=== PATIENT | male | born 1990 | race Caucasian/White ===

== ENCOUNTER 2019-08-18 13:56 | Inpatient (IN) | payer OTHER ==
[~2019-08-18] VITALS: Ht 180.3 cm; Wt 122.5 kg
[~2019-08-18 13:56] MED LIST: KEFLEX500 MG PO; NOHOMEMEDICATIONS
[2019-08-18 13:58] VITALS: BP 137/89
[2019-08-18] MEDS ORDERED: METFORMIN HCL500 M3 PO (14:08)
[2019-08-18] MEDS ORDERED: ZOCOR 10 MG TAB10 M1 PO (14:09)
[2019-08-18] MEDS ORDERED: LISINOPRIL2.5 MG PO (14:09)
[2019-08-18] MEDS ORDERED: VITAMIN D2400 UNIT PO (14:10)
[2019-08-18] MEDS ORDERED: VENLAFAXINE HC150 MG PO (14:11)
[2019-08-18 14:41] LABS: ABSOLUTE LYMPHOCYTES 0.7 thou/uL (0.8-5.3); ABSOLUTE MONOCYTES 0.2 thou/uL (0.0-1.2); BASOPHILS 0.3 %; HEMATOCRIT 37.2 % (42.0-52.0); LYMPHOCYTES 18.5 %; MCH 28.2 pg (26.0-34.0); MCV 80.6 fL (80.0-100.0); MONOCYTES 5.8 %; MPV 7.8 fl. (7.2-11.1); NUCLEATED RBCS 0 /100WBC; PLATELET COUNT* 166 thou/uL (150-400); POLYS 75.4 %; RBC 4.61 mil/uL (4.50-6.00); RDW-CV 14.7 % (10.5-14.5)
[2019-08-18 14:52] LABS: CALCIUM 8.3 mg/dL (8.5-10.1); CREATININE 0.9 mg/dL (0.6-1.3)
[2019-08-18 14:54] LABS: INFLUENZA A ANTIGEN Negative (Negative); INFLUENZA B ANTIGEN Negative (Negative)
[2019-08-18 14:56] LABS: ALBUMIN 3.6 g/dL (3.4-5.0); TOTAL BILIRUBIN 0.6 mg/dL (<0.1-1.0); TOTAL PROTEIN 7.9 g/dL (6.4-8.2)
[2019-08-18 16:40] VITALS: BP 112/69
[2019-08-18 17:00] VITALS: BP 136/84
[2019-08-18 20:20] VITALS: BP 108/71
[2019-08-19] VITALS (7 sets, daily range): BP systolic 118–145; BP diastolic 56–97
[2019-08-19 05:14] LABS: HEMATOCRIT 35.1 % (42.0-52.0); MCH 27.8 pg (26.0-34.0); MCHC 34.2 g/dL (28.0-37.0); MCV 81.3 fL (80.0-100.0); MPV 7.4 fl. (7.2-11.1); RBC 4.31 mil/uL (4.50-6.00); RDW-CV 14.5 % (10.5-14.5); WBC 4.4 thou/uL (4.0-11.0)
[2019-08-19 05:33] LABS: CALCIUM 8.3 mg/dL (8.5-10.1); CREATININE 0.8 mg/dL (0.6-1.3); TOTAL BILIRUBIN 0.5 mg/dL (<0.1-1.0); TOTAL PROTEIN 6.9 g/dL (6.4-8.2)
--- NOTE | 2019-08-19 05:39 | NUR ---
PT A&O X 4. FEVER ALL NIGHT. TYLENOL GIVEN. O2 SAT 92-94% ON 2L. MEDS GIVEN ORDERED. IVF INFUSING. NO C/O PAIN OR N/V. WILL CONTINUE TO MONITOR.
--- NOTE | 2019-08-19 14:15 | NUR ---
CM SPOKE TO THE PT TO DISCUSS HIS HOME SITUATION, DISCHARGE PLANNING, AND TO DISCUSS THE ROLE OF CM. PT INDEPENDENT, ACTIVE, AND WORKED PRIOR TO ADMISSION. PT DOES NOT USE ANY DME. PT INFORMS THAT HE WORKS FOR A [employer]Y AND DOES NOT HAVE INSURANCE. PT HAS LIMITED RESOURCES AND MAY HAVE D/C BARRIERS IF ANY DME OR MEDICATIONS ARE NEEDED. CM WILL REMAIN AVAILABLE TO ASSIST AND FOLLOW FOR D/C PLANNING NEEDS.
[2019-08-20] VITALS: BP 140/95
[2019-08-20 02:07] LABS: GLYCOHEMOGLOBIN (HGB A1C) 9.9 % (4.8-5.6)
[2019-08-20 03:23] LABS: BE -3.7 mmol/L (-2 to +3); PCO2 41.2 mmHg (35.0-45.0); pH 7.341 (7.340-7.450)
[2019-08-20 03:27] LABS: PO2 43.2 mmHg (75.0-100.0)
[2019-08-20 04:00] VITALS: BP 133/89
[2019-08-20 04:10] LABS: ALBUMIN 3.1 g/dL (3.4-5.0); CALCIUM 8.6 mg/dL (8.5-10.1); CREATININE 0.8 mg/dL (0.6-1.3); MAGNESIUM 1.9 mg/dL (1.8-2.4); POTASSIUM 3.7 mmol/L (3.5-5.1); TOTAL BILIRUBIN 0.5 mg/dL (<0.1-1.0); TOTAL PROTEIN 7.3 g/dL (6.4-8.2)
[2019-08-20 04:10] LABS: BE -1.9 mmol/L (-2 to +3); PO2 68.5 mmHg (75.0-100.0); pH 7.371 (7.340-7.450)
[2019-08-20 04:22] LABS: HEMATOCRIT 36.4 % (42.0-52.0); HEMOGLOBIN 12.4 gm/dL (14.0-18.0); MCH 27.7 pg (26.0-34.0); MCV 81.7 fL (80.0-100.0); MPV 7.6 fl. (7.2-11.1); RBC 4.46 mil/uL (4.50-6.00); RDW-CV 14.8 % (10.5-14.5); WBC 6.4 thou/uL (4.0-11.0)
--- NOTE | 2019-08-20 04:52 | NUR ---
PATIENT HAS SLEPT OFF AND ON DURING THE NIGHT. VSS ON 5L 02 VIA NASAL CANNULA. PATIENT WAS FEBRILE EARLIER IN THE NIGHT. TEMP NOW 36.7. PATIENT TACHYPNEIC. NOTIFIED AND NEW ORDERS GIVEN. NEW IV INSERTED IN RIGHT AC-SL. PATIENT INSTRUCTED TO USE CALL LIGHT WHEN NEEDING ASSISTANCE. HOURLY ROUNDS MADE. WILL CONTINUE WITH PLAN OF CARE AND NURSING TO MONITOR.
[2019-08-20 07:40] VITALS: BP 152/89
[2019-08-20 12:00] VITALS: BP 149/86
[2019-08-20 16:00] VITALS: BP 135/99
--- NOTE | 2019-08-20 17:07 | NUR ---
ASSUMED CARE OF PATIENT AT APPROX 0730. ALERT AND ORIENTED X4. ASSESSMENT COMPLETED AND CHARTED. 02 AT 90% ON 6 LITERS NC, RT PLACED PATIENT ON HI NILSON AT 30 LITERS; PATIENT VITALS STABLE. SINUS TACH TRACED ON THE MONITOR. PATIENT GIVEN AN IS AND INSTRUCTED ON USING IT WITH A GOAL OF 2500, PROGRESSING WELL TODAY. PATIENT UP AD NICOL. CALL LIGHT WITHIN REACH. HOURLY ROUNDS COMPLETED. WILL CONTINUE WITH PLAN OF CARE.
[2019-08-20 20:00] VITALS: BP 144/92
[2019-08-21 05:36] LABS: ABSOLUTE LYMPHOCYTES 0.8 thou/uL (0.8-5.3); ABSOLUTE MONOCYTES 0.4 thou/uL (0.0-1.2); ABSOLUTE NEUTROPHILS 3.6 thou/uL (1.6-8.1); BASOPHILS 0.3 %; EOSINOPHILS 0.1 %; HEMATOCRIT 34.9 % (42.0-52.0); HEMOGLOBIN 12.1 gm/dL (14.0-18.0); LYMPHOCYTES 17.1 %; MCH 27.9 pg (26.0-34.0); MCHC 34.8 g/dL (28.0-37.0); MCV 80.3 fL (80.0-100.0); MONOCYTES 8.2 %; MPV 7.7 fl. (7.2-11.1); NUCLEATED RBCS 0 /100WBC; PLATELET COUNT* 238 thou/uL (150-400); POLYS 74.3 %; RBC 4.34 mil/uL (4.50-6.00); RDW-CV 14.4 % (10.5-14.5); WBC 4.9 thou/uL (4.0-11.0)
--- NOTE | 2019-08-21 05:52 | NUR ---
PT A&O, ON HIGH FLOW O2. TYLENOL GIVEN FOR LOW GRADE TEMP AND HEADACHE. HR TACHY. MEDS GIVEN ORDERED. MONITOR IN PLACE. WILL CONTINUE TO MONITOR.
[2019-08-21 05:57] LABS: ALBUMIN 2.9 g/dL (3.4-5.0); CALCIUM 8.5 mg/dL (8.5-10.1); CREATININE 0.7 mg/dL (0.6-1.3); POTASSIUM 3.5 mmol/L (3.5-5.1); TOTAL BILIRUBIN 0.5 mg/dL (<0.1-1.0); TOTAL PROTEIN 7.3 g/dL (6.4-8.2)
[2019-08-21 09:35] VITALS: BP 132/93
[2019-08-21 12:45] VITALS: BP 136/92
--- NOTE | 2019-08-21 16:53 | NUR ---
IGOR RECIEVED A CALL FROM FATMATA WITH [facility] AND SHE INFORMS THAT THE PT HAS BEEN APPROVED FOR MEDICAID FOR COVID-19 PT'S, BUT WILL NEED THE PT'S SIGNATURE ON THE APPLICATION FORM AND FAXED BACK TO HER [facility]. RN IN-CHARGE OF PT ASSISTED WITH GETTING FORM SIRI AND CM FAXED THE APPLICAITON BACK TO [facility]. CM TO F/U WITH [facility] TOMORROW TO DISCUSS WHEN PT'S APPROVAL CARLITOS BE COMPLETE. CM WILL REMAIN AVAILABLE TO ASSIST AND FOLLOW NEEDED.
[2019-08-21 17:03] VITALS: BP 144/100
--- NOTE | 2019-08-21 18:43 | NUR ---
ASSUMED CARE OF PATIENT AT APPROX 0730. ALERT AND ORIENTED X4. ASSESSMENT COMPLETED AND CHARTED. VSS ON 30 LITERS HIFLO. COMPLAINTS OF HEADACHE ADDRESSED WITH TYLENOL. NO OTHER COMPLAINTS THIS SHIFT. ANTIBIOTICS INFUSED ORDERED. PATIENT UP AD NICOL. CALL LIGHT WITHIN REACH. HOURLY ROUNDS COMPLETED. WILL CONTINUE WITH PLAN OF CARE.
[2019-08-21 20:00] VITALS: BP 142/88
[2019-08-22] VITALS: BP 137/89
[2019-08-22 04:00] VITALS: BP 146/88
--- NOTE | 2019-08-22 04:10 | NUR ---
PT A&OX4, ASSESSMENTS COMPLETED CHARTED, MEDICATIONS ADMINISTERED PER MAR. HOURLY ROUNDING FOR SAFETY. CONT ISOLATION AIRBORNE AND CONTACT. CALL LIGHT WITHIN REACH, CONT PLAN OF CARE.
[2019-08-22 08:00] VITALS: BP 136/90
[2019-08-22 12:00] VITALS: BP 143/97
[2019-08-22 16:00] VITALS: BP 150/97
--- NOTE | 2019-08-22 18:41 | NUR ---
CELESTENET RESTING IN BED. HEATED HIGH FLOW AT 40% AND 30 LITERS NOW. IMPROVED BREASTHING AND SHORTNESS OF BREATH. GOOD APPETITE. VSS. GLUCOSE LEVEL CHECKS WITH SLIDING SCALE INSULIN. HOURLY ROUNDING COMPLETED AND CLUSTERING OF CARE COMPLETD FOR PATIENT SAFETY WITH COVID PRECAUTIONS.
[2019-08-22 20:00] VITALS: BP 138/83
[2019-08-23] VITALS: BP 140/99
[2019-08-23 03:40] VITALS: BP 107/92
[2019-08-23 05:49] LABS: ABSOLUTE EOSINOPHILS 0.1 thou/uL (0.0-0.7); ABSOLUTE LYMPHOCYTES 1.1 thou/uL (0.8-5.3); ABSOLUTE MONOCYTES 0.5 thou/uL (0.0-1.2); ABSOLUTE NEUTROPHILS 1.5 thou/uL (1.6-8.1); BASOPHILS 0.4 %; EOSINOPHILS 2.7 %; HEMATOCRIT 32.6 % (42.0-52.0); HEMOGLOBIN 11.3 gm/dL (14.0-18.0); MCH 27.6 pg (26.0-34.0); MCHC 34.6 g/dL (28.0-37.0); MCV 79.7 fL (80.0-100.0); MONOCYTES 15.7 %; MPV 7.8 fl. (7.2-11.1); NUCLEATED RBCS 0 /100WBC; PLATELET COUNT* 274 thou/uL (150-400); POLYS 46.2 %; RBC 4.09 mil/uL (4.50-6.00); RDW-CV 14.3 % (10.5-14.5); WBC 3.2 thou/uL (4.0-11.0)
--- NOTE | 2019-08-23 05:59 | NUR ---
ASSUMED PATIENT CARE AT 1900. ASSESSMENT COMPLETED CHARTED. PATIENT IS ST/SR ON THE MONITOR. PATIENT O2 SAT DECREASED DURING SHIFT, HOB ELEVATED, RT NOTIFIED AND CAME TO FLOOR. PATIENT O2 INCREASED. PATIENT O2 SATURATION RETURNED TO NORMAL LEVELS, WILL CONTINUE TO MONITOR. HOURLY ROUNDING IN PLACE FOR PATIENT SAFETY. CLWR.
[2019-08-23 06:05] LABS: CALCIUM 8.6 mg/dL (8.5-10.1); CREATININE 0.8 mg/dL (0.6-1.3); POTASSIUM 3.2 mmol/L (3.5-5.1)
[2019-08-23 08:15] VITALS: BP 134/93
[2019-08-23 12:00] VITALS: BP 146/99
[2019-08-23 16:00] VITALS: BP 155/90
--- NOTE | 2019-08-23 16:39 | NUR ---
ASSUMED CARE OF THE PT @ 0700. PT IS A/OX4. C/O HEADACHE PAIN 11/27. TYLENOL GIVEN. TORADOL ORDERED. CONTINUES ON IV ABT. LT FA IV PATENT. VOIDING ADEQUATE AMOUNTS OF YELLOW URINE. PT IS UP AD NICOL. CONTINUES ON 40% HIGH FLOW HEATED O2. SATS UPPER 90S. PERSISTENT NONE PRODUCTIVE COUGH NOTED. PT HAD AND EPISODE OF VOMITING WITH COUGHING EPISODE OF CLEAR LIQUID ANS MUCUS. APPETITE IS GOOD. PT IS RESTING QUIETLY AT THIS TIME WITH CALL STEVE SOTO. BED LOW AND LOCKED. WILL CONTINUE TO MONITOR.
[2019-08-23 20:00] VITALS: BP 137/88
[2019-08-24] VITALS: BP 144/87
[2019-08-24 04:00] VITALS: BP 148/89
--- NOTE | 2019-08-24 05:09 | NUR ---
ASSUMED PATIENT CARE AT 1900. ASSESSMENT COMPLETED CHARTED. PATIENT IS NSR ON THE MONITOR. HOURLY ROUNDING IN PLACE FOR PATIENT SAFETY. CLWR.
[2019-08-24 05:31] LABS: ABSOLUTE EOSINOPHILS 0.1 thou/uL (0.0-0.7); ABSOLUTE LYMPHOCYTES 1.1 thou/uL (0.8-5.3); ABSOLUTE MONOCYTES 0.4 thou/uL (0.0-1.2); ABSOLUTE NEUTROPHILS 1.8 thou/uL (1.6-8.1); BASOPHILS 0.7 %; EOSINOPHILS 4.1 %; HEMATOCRIT 34.1 % (42.0-52.0); HEMOGLOBIN 11.9 gm/dL (14.0-18.0); LYMPHOCYTES 31.8 %; MCH 27.7 pg (26.0-34.0); MCV 79.2 fL (80.0-100.0); MONOCYTES 11.8 %; MPV 8.1 fl. (7.2-11.1); NUCLEATED RBCS 0 /100WBC; PLATELET COUNT* 283 thou/uL (150-400); POLYS 51.6 %; RBC 4.31 mil/uL (4.50-6.00); RDW-CV 14.3 % (10.5-14.5); WBC 3.6 thou/uL (4.0-11.0)
[2019-08-24 05:45] LABS: ALBUMIN 2.9 g/dL (3.4-5.0); CALCIUM 8.4 mg/dL (8.5-10.1); CREATININE 0.8 mg/dL (0.6-1.3); POTASSIUM 3.3 mmol/L (3.5-5.1); TOTAL BILIRUBIN 0.3 mg/dL (<0.1-1.0)
[2019-08-24 12:00] VITALS: BP 143/103
[2019-08-24 13:02] VITALS: BP 156/99
[2019-08-24 16:00] VITALS: BP 158/94
--- NOTE | 2019-08-24 18:51 | NUR ---
ASSUMED CARE OF THE PT THIS AM @ 0700. PT A/O X4. C/O HEADACHE. TYLENOL GIVEN. PT IS ON HIGH FLOW O2 THIS AM SATS IN UPPER 90S. PT TITRAED TO 6 LITERS THIS AFTERNOON ON MARITZA FLOW. O2 SAT DOPPED IN THE 80S. RT CALLED AND REGULAR BUBBLER CONNECTED. PT O2 SATS STABLE. NONPODUCTIVE COUGH NOTED. CONTINUES ON IV ABT. TOLERATING WELL. VOIDING PER URINAL AND BSC. PT IS UP AD NICOL. RESTING QUIETLY AT THIS TIME WITH THE CALL LIGHT IN REACH. BED LOW AND LOCKED. wILL CONTINUE TO CONTINUE TO MONITOR.
[2019-08-24 20:44] VITALS: BP 142/84
[2019-08-25] VITALS (7 sets, daily range): BP systolic 128–155; BP diastolic 79–102
--- NOTE | 2019-08-25 06:03 | NUR ---
PT IS ABLE TO COMMUNICATE HIS NEEDS TO STAFF EFFECTIVELY. CURRENT PAIN MEDICATION REGIMEN HAS BEEN ADEQUATE FOR CONTROLLING HIS PAIN UP TO THIS TIME. PT HAS BEEN UP AD NICOL AND STEADY. COVID TESTING WAS INITIALLY POSITIVE. ENHANCED ISOLATION PRECAUTIONS MAINTAINED.
--- NOTE | 2019-08-25 06:32 | CON ---
[address] [address] CONSULTATION Name: RADHAANAOSMANY SILVANO Room: [address] IN M.R.#: [id number] Admission: 08/18/19 Attend Phys: Antonia Craven MD Discharge: Date of : 88 Report #: [id number] THIS REPORT FOR: //name// cc: Claire Bravo NP, Elizabeth NP ~ THIS REPORT FOR: //name// CC: Claire Craven DATE OF SERVICE: 08/22/2019 INFECTIOUS DISEASE CONSULTATION ATTENDING PHYSICIAN: Dr. Ferreira. REASON FOR EVALUATION: Covid-19 infection with significant respiratory compromise. HISTORY OF PRESENT ILLNESS: Chart reviewed, patient examined. This is a 29-year-old gentleman with diabetes mellitus type 2, non-insulin requiring, who presented to the Emergency Room with complaints of dyspnea, cough, diaphoresis and fever. He noted onset 1 week prior, was diagnosed with presumptive COVID and discharged; however, it became worse, seen by his primary care, was borderline saturation, was admitted with a saturation 88%, he has been maintained on high flow concentration oxygen per nasal cannula. He has had intermittent fevers. He is not encephalopathic. He does admit to some anorexia. It is not clear why he has altered smell and taste. Denies significant abdominal pain; however, he has had loose stools fairly consistently. He was started on therapy with hydroxychloroquine as well as azithromycin and ceftriaxone. ALLERGIES: None known. CURRENT MEDICATIONS: Include diphenoxylate, venlafaxine, lisinopril, metformin, insulin lispro, enoxaparin, famotidine, hydroxychloroquine, ceftriaxone, completed a course of azithromycin. PAST MEDICAL HISTORY: Diabetes mellitus type 2 diagnosed 2-3 years ago, carpal tunnel x 2. SOCIAL HISTORY: Nonsmoker. No ethanol, no illicit drug use. FAMILY HISTORY: Noncontributory. REVIEW OF SYSTEMS: Otherwise, unremarkable 10-point review of systems with [address] [address] CONSULTATION Name: OSMANY COELHO Room: [address]#: [id number] Admission: 08/18/19 Attend Phys: Antonia Craven MD Discharge: Date of : 88 Report #: [id number] exception of the above. PHYSICAL EXAMINATION: GENERAL: He is alert and cooperative. He is sitting generally up in bed. He is lucid, moderate distress, appears to be well nourished. VITAL SIGNS: Temperature 98.5 with a T-max overnight 100.7, pulse 98, respirations 16, blood pressure 136/90. SKIN: Warm, dry; no rashes. HEENT: He has got a high flow nasal cannula in place. NECK: Supple. HEENT: Normocephalic. Extraocular muscles intact. LUNGS: Scattered coarse breath sounds. HEART: Borderline tachycardic, regular. I do not appreciate murmur. ABDOMEN: Soft, is obese, nontender. There are no peritoneal signs. GENITOURINARY AND RECTAL: Deferred. LABORATORY DATA: Chest x-ray showed diffuse pulmonary infiltrates with mild increase. Electrolytes from 08/21/2019;sodium 138, potassium 3.5, chloride 102, bicarbonate is 27, anion gap of 9, BUN and creatinine 6 and 0.7, glucose of 235. AST 47, ALT of 38 former being technically elevated. Albumin 2.9, total protein 7.3. CBC from yesterday; white count of 4.9, H and H 12.1 and 34.9, platelets of 238, he did have a cytopenia of 800, which was at the border. ASSESSMENT: COVID-19 infection of moderate severity. PLAN: We will discuss with pharmacy about possibility of adding additional agent, IL-6 monoclonal antibody. At this point, we would continue to support with oxygen and it may well worsen, requiring intubation with mechanical ventilatory support. At this point, he is not overtly unstable. Given his youth, it is encouraging. He has been ill for up 10 to 12 days thus far. <ELECTRONICALLY SIGNED> By: Johnathon Denny MD 08/25/19 0632 [id number] Denny MD /nt
[2019-08-25 11:39] LABS: HEMATOCRIT 35.5 % (42.0-52.0); HEMOGLOBIN 12.6 gm/dL (14.0-18.0); MCH 27.7 pg (26.0-34.0); MCHC 35.4 g/dL (28.0-37.0); MCV 78.4 fL (80.0-100.0); MPV 8.3 fl. (7.2-11.1); NUCLEATED RBCS 1 /100WBC; PLATELET COUNT* 293 thou/uL (150-400); RBC 4.53 mil/uL (4.50-6.00); RDW-CV 14.4 % (10.5-14.5); WBC 3.4 thou/uL (4.0-11.0)
[2019-08-25 11:47] LABS: CALCIUM 8.6 mg/dL (8.5-10.1); CREATININE 0.9 mg/dL (0.6-1.3); POTASSIUM 3.6 mmol/L (3.5-5.1)
[2019-08-25 12:19] LABS: ABSOLUTE EOSINOPHILS 0.1 thou/uL (0.0-0.7); ABSOLUTE LYMPHOCYTES 1.7 thou/uL (0.8-5.3); ABSOLUTE MONOCYTES 0.2 thou/uL (0.0-1.2); ABSOLUTE NEUTROPHILS 1.4 thou/uL (1.6-8.1); ATYPICAL LYMPHS 4 %; METAMYELOCYTES 2 %
[2019-08-25 12:20] LABS: MICROCYTES 2+; PLATELET ESTIMATE ADEQUATE
[2019-08-25 12:21] LABS: GIANT PLATELETS RARE
--- NOTE | 2019-08-25 16:29 | NUR ---
VERENICE tried twice to call pt in pt room, no answer. 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 VERENICE called Claire with [employer] to follow up on needed information to complete Medicaid process and Claire said she would also call pt room and pt to follow up on finding out answers as well. Claire contacted VERENICE afterwards and she was also unable to reach pt and left a message for pt to call back. VERENICE/CM to continue to follow to assist with safe dc planning and assist with completing application process for Medicaid. VERENICE also following for potential supplemental oxygen needs.
--- NOTE | 2019-08-25 20:08 | NUR ---
I ASSUMED CARE OF THE PATIENT AT 0700. BED IS IN THE LOW LOCKED POSITION AND CALL LIGHT IS IN REACH. HOURLY ROUNDING IS COMPLETED AND PATIENT NEEDS ARE MET. PAIN IS MANAGED WITH PRN TYLENOL. ISOLATION IS MAINTAINED AND A NEW COVID SWAB WAS SENT TO LAB. BLOOD SUGAR WAS MONITORED. LABS WERE DRAWN AND SENT. WILL CONTINUE TO MONITOR.
[2019-08-26 00:08] VITALS: BP 140/92
[2019-08-26 04:38] VITALS: BP 140/80
--- NOTE | 2019-08-26 06:30 | NUR ---
PT IS ABLE TO COMMUNICATE HIS NEEDS TO STAFF EFFECTIVELY. CURRENT PAIN MEDICATION REGIMEN HAS BEEN ADEQUATE FOR CONTROLLING HIS PAIN UP TO THIS TIME. MOST RECENTLY ACQUIRED SAMPLE FOR COVID TESTING HAS COME BACK POSITIVE. PT HAS BEEN UP AD NICOL AND STEADY.
[2019-08-26 08:30] VITALS: BP 141/93
--- NOTE | 2019-08-26 10:34 | NUR ---
VERENICE followed up with Claire from [facility] who was able to speak with pt/family to receive answers needed for Medicaid application process to proceed; Claire submitting answers to the state now. VERENICE continuing to follow for dc needs; possible supplemental oxygen needs at dc; 6L as of today. Possibility of need testing and orders and VERENICE will send initial referral to [facility] who may be able to provide oxygen without the testing for up to 30 days.
--- NOTE | 2019-08-26 11:07 | NUR ---
Nutrition: Pt admitted with COVID PNA. H/o DM, asthma. A1c 9.9%, alb 2.9, BG 121-170. Wt: 270#. Appetite good, 2gm Na diet. Assessed for LOS. No nutrition concerns at this time. Pt may benefit from outpatient DM counseling after pandemic. Low risk.
--- NOTE | 2019-08-26 11:38 | NUR ---
ASSUMED PT CARE AT 0730, PT SITTING UP IN BED, A&OX4, COMPLAINS OF A HEADACHE, MEDS GIVEN PER MAR. SATTING 89% ON 5 L HIGH FLOW, INCREASING O2 TO 6 L WITH SATS INCREASING TO 93-94%. PT STATES HE HAS BLOOD TINGED SPUTUM, NON PROD COUGH NOTED TRACING SR ON THE MARKETING AND PUBLIC RELATIONS MANAGER. HE IS UP AD NICOL. PT HAD REPEAT CXR THIS MORNING, REFER TO RESULTS. PT GOAL IS TO TITRATE O2 DOWN AND MANAGE HEADACHE PAIN. AM ASSESSMENT CHARTED, HOURLY ROUNDING OBSERVED, MEDS PER MAR, WILL CONTINUE POC.
[2019-08-26 16:00] VITALS: BP 136/58
--- NOTE | 2019-08-26 18:07 | NUR ---
NO ACUTE CHANGES NOTED, PT SLOWLY PROGRESSING TOWARDS GOALS AND IS TITRATED DOWN TO 4 L NC. NEW IV PLACED BY COUNTER PROFESSIONAL IN L FA. PT UPSET THIS AFTERNOON REGARDING INABILITY TO RECEIVE NEW CLOTHES FROM FAMILY. PT EDUCATED ON ENHANCED ISOLATION PRECAUTIONS AND HOSPITAL PROTOCOL, SOMEWHAT RECEPTIVE. MEDS PER MAR, CALL LIGHT W/IN REACH, WILL CONTINUE POC.
[2019-08-26 20:30] VITALS: BP 150/90
[2019-08-27] VITALS (7 sets, daily range): BP systolic 117–162; BP diastolic 74–105
--- NOTE | 2019-08-27 06:55 | NUR ---
VSS. SEE MAR. SEE CHARTING.
[2019-08-27 10:32] LABS: ABSOLUTE EOSINOPHILS 0.1 thou/uL (0.0-0.7); ABSOLUTE LYMPHOCYTES 1.5 thou/uL (0.8-5.3); ABSOLUTE MONOCYTES 0.3 thou/uL (0.0-1.2); ABSOLUTE NEUTROPHILS 1.7 thou/uL (1.6-8.1); BASOPHILS 0.9 %; EOSINOPHILS 3.4 %; HEMATOCRIT 39.7 % (42.0-52.0); HEMOGLOBIN 13.7 gm/dL (14.0-18.0); LYMPHOCYTES 41.8 %; MCH 27.5 pg (26.0-34.0); MCHC 34.6 g/dL (28.0-37.0); MCV 79.5 fL (80.0-100.0); MONOCYTES 7.8 %; MPV 8.2 fl. (7.2-11.1); NUCLEATED RBCS 0 /100WBC; PLATELET COUNT* 313 thou/uL (150-400); POLYS 46.1 %; RBC 4.99 mil/uL (4.50-6.00); RDW-CV 14.6 % (10.5-14.5); WBC 3.6 thou/uL (4.0-11.0)
[2019-08-27 10:56] LABS: ALBUMIN 3.5 g/dL (3.4-5.0); CREATININE 0.9 mg/dL (0.6-1.3); POTASSIUM 3.6 mmol/L (3.5-5.1); TOTAL BILIRUBIN 0.3 mg/dL (<0.1-1.0); TOTAL PROTEIN 7.3 g/dL (6.4-8.2)
--- NOTE | 2019-08-27 18:49 | NUR ---
PATIENT NOTED FLAT AFFECT, BLUNT W/ RESPONSES TO Qs. PATIENT STATES HE WANTS TO GO HOME. PATIENT INSTRUCTED ON POC. O2 4L/NC, DECREASED TO 1L/NC THRU SHIFT. RT NOTIFIED OF INTERVENTION FOR DC PLANNING. IV SITE NOTED WNL. PATIENT INDEP IN RM. NO SOB NOTED. C/O AN, SEE MAR. TELE NOTED. ISO MAINTAINED. ~TJRN
[2019-08-28 04:00] VITALS: BP 141/96
--- NOTE | 2019-08-28 06:42 | NUR ---
PT ALERT AND ORIENTED X4. BEGINNING OF SHIFT PT WAS ON 1L AND SATTING AT 92%. MEDS WERE GIVEN PER EMAR. @ 0400 PT WAS SATTING IN BETWEN 87-89%. PT'S O2 WAS INCREASED TO 3L AND PT WAS SATTING @ 92%. PT VOIDS VIA BSC. BM NOTED THIS SHIFT. POSSIBLE DC TO HOME TODAY. CALL LIGHT WITHIN REACH. HOURLY ROUNDINGS MADE. WILL CONTINUE TO MONITOR.
[2019-08-28 09:00] VITALS: BP 150/101
[2019-08-28 13:13] VITALS: BP 150/101
--- NOTE | 2019-08-28 13:35 | NUR ---
PATIENT DISCHARGE TO HOME TO SELF CARE. RT EVAL DONE, PATIENT TO RA. DISCHARGE INSTRUCTIONS REVIEWED W/ PATIENT. PATIENT STATES VERBALLY OF UNDERSTANDING. PATIENT STATES THAT HE HAS A SEPARATE ROOM AT HOME THAT HE WILL BE USING TO ISOLATE PER COVID PRECAUTIONS. COVID INFORMATION GIVEN TO PATIENT TO REVIEW. PATIENT ESCORTED OFF UNIT W/ N95 MASK ON. AMBULATING W/ STEADY GAIT. DENIES OTHER NURSING NEEDS AT THIS TIME. BELONGINGS WITH PATIENT. ALERT AND ORIENTED. ~TJRN
--- NOTE | 2019-08-28 15:58 | NUR ---
Pt to dc home with today. Pt not needing supplemental oxygen at time of dc; SW informed Yuki with [employer] that pt doesn't qualify at this time after all.
--- NOTE | 2019-08-29 12:16 | EKG ---
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
== END 2019-08-28 13:35 | disposition home or self-care (01) | DRG 177 ==
LOC: M.ERS 13:56 → M.ORTHSURG 14:45 → M.TBA-ER 14:45 → M.ORTHSURG 16:27
PROVIDERS: Emergency Medicine Emergency Medical Services; Family Medicine; Internal Medicine; ADMIT Internal Medicine
DX: U07.1 COVID-19 (principal); J96.01 Acute respiratory failure with hypoxia; J12.89 Other viral pneumonia; E11.9 Type 2 diabetes mellitus without complications; J45.909 Unspecified asthma, uncomplicated; E87.6 Hypokalemia; Z79.899 Other long term (current) drug therapy

== ENCOUNTER → 2021-03-22 | Outpatient (CLI) | payer OTHER ==
[~2021-03-22] MED LIST changes: +LISINOPRIL2.5 MG PO; +METFORMIN HCL500 M3 PO; +VENLAFAXINE HC150 MG PO; +VITAMIN D2400 UNIT PO; +ZOCOR 10 MG TAB10 M1 PO
== END ==
LOC: M.CT 03-11 14:00
PROVIDERS: ATTEND Nurse Practitioner
DX: Z13.6 Encounter for screening for cardiovascular disorders (principal)